=== PATIENT | male | born 1995 | race Two or more races ===

== ENCOUNTER 2018-04-07 17:30 | Emergency (ER) | payer BC ==
--- NOTE | 2018-04-07 18:59 | EDM.PDOC ---
ED HPI GENERAL MEDICAL PROBLEM - General Chief Complaint: Skin Complaint Stated Complaint: POSSIBLE STD Time Seen by Provider: 04/07/18 18:40 Source of Information: Reports: Patient History Limitations: Reports: No Limitations - History of Present Illness INITIAL COMMENTS - FREE TEXT/NARRATIVE: 23 year old male presents for evaluation and treatment of a possible STD. Patient reports about 3 weeks ago he had unprotected intercourse with his girlfriend. About 3 days later he noticed a bump to the dorsal base of his penis. Denies any pain associated with the area. He denies any fevers, chills, dysuria, penile discharge or other rashes. Reports he has never had any STDs but has also never been checked for any STDS. Reports his partner does not have any STDs she is enriquez of. - Related Data Allergies Allergy/AdvReac Type Severity Reaction Status Date / Time No Known Allergies Allergy Verified 04/07/18 17:44 Home Meds: Home Meds . [No Known Home Meds] 04/07/18 [History] Past Medical History HEENT History: Reports: Impaired Vision Social & Family History - Family History Family Medical History: Noncontributory - Tobacco Use Smoking Status *Q: Never Smoker - Caffeine Use Caffeine Use: Reports: Coffee - Recreational Drug Use Recreational Drug Use: No ED ROS GENERAL - Review of Systems Review Of Systems: See Below Constitutional: Denies: Fever, Chills : Denies: Discharge, Dysuria, Pain Skin: Reports: Lumps (dorsal base of penis) ED EXAM, SKIN/RASH Exam: See Below Exam Limited By: No Limitations General Appearance: Alert, WD/WN, No Apparent Distress Respiratory/Chest: No Respiratory Distress, Lungs Clear, Normal Breath Sounds Cardiovascular: Normal Peripheral Pulses, Regular Rate, Rhythm, No Murmur Neurological: Alert, Oriented, Normal Cognition Psychiatric: Normal Affect, Normal Mood Location, Skin: Genital Characteristics: Other (closed comodone to the base of the dorsal penis, no associated swelling, erythema, tenderness or blistering). No: Vesicular, Erythematous Associated features: No: Tenderness, Swelling Course - Vital Signs Last Recorded V/S: Last Vital Signs Temp 98.3 F 04/07/18 17:46 Pulse 70 04/07/18 17:46 Resp 14 04/07/18 17:46 BP 133/69 04/07/18 17:46 Pulse Ox 99 04/07/18 17:46 - Re-Assessments/Exams Free Text/Narrative Re-Assessment/Exam: 04/07/18 18:55 Appears to be a closed comodone. Recommended warm compress but he should avoid attempting to pop the area, as this could worsen the area or cause infection. No infection noted today. Discharge instructions as documented. Departure - Departure Time of Disposition: 18:55 Disposition: Home, Self-Care 01 Condition: Fair Clinical Impression: Closed comedone - Discharge Information *PRESCRIPTION DRUG MONITORING PROGRAM REVIEWED*: No *COPY OF PRESCRIPTION DRUG MONITORING REPORT IN PATIENT HELEN: No Referrals: PCP,Not In Area [Primary Care Provider] - Forms: ED Department Discharge Additional Instructions: May apply a warm compress to the area. The area should resolve on its own, it may take several weeks to months to resolve. Monitor for signs of infection such as increased redness, swelling or draining. Present to clinic or the ER should these develop. Pleaser return to the ER should symptoms change or worsen.
== END 2018-04-07 19:04 | disposition home or self-care (01) ==
LOC: JD.ED 17:30
DX: L70.0 Acne vulgaris (principal); Z20.2 Contact with and (suspected) exposure to infections with a predominantly sexual mode of transmission
CPT/HCPCS: 99283

== ENCOUNTER 2019-10-20 15:11 | Emergency (ER) | payer BC ==
--- NOTE | 2019-10-20 16:53 | EDM.PDOC ---
ED HPI GENERAL MEDICAL PROBLEM - General Chief Complaint: Respiratory Problem Stated Complaint: CHEST CONGESTION X 4 MONTHS Time Seen by Provider: 10/20/19 16:52 Source of Information: Reports: Patient, RN Notes Reviewed - History of Present Illness INITIAL COMMENTS - FREE TEXT/NARRATIVE: 24 yr old male with prod. cough for "4 months" not getting better. No fever, chills or difficulty breathin. Occasional mild nasal jed. No other unusual sx. - Related Data Allergies Allergy/AdvReac Type Severity Reaction Status Date / Time No Known Allergies Allergy Verified 10/20/19 16:09 Home Meds: Home Meds . [No Known Home Meds] 04/07/18 [History] Past Medical History HEENT History: Reports: Impaired Vision Cardiovascular History: Reports: None Respiratory History: Reports: None Gastrointestinal History: Reports: None Genitourinary History: Reports: None Musculoskeletal History: Reports: None Neurological History: Reports: None Psychiatric History: Reports: None Endocrine/Metabolic History: Reports: None Hematologic History: Reports: None Immunologic History: Reports: None Oncologic (Cancer) History: Reports: None Dermatologic History: Reports: None - Infectious Disease History Infectious Disease History: Reports: None Social & Family History - Family History Family Medical History: Noncontributory - Tobacco Use Smoking Status *Q: Never Smoker - Caffeine Use Caffeine Use: Reports: Soda - Recreational Drug Use Recreational Drug Use: No ED ROS GENERAL - Review of Systems Review Of Systems: See Below Constitutional: Denies: Fever, Chills, Diaphoresis HEENT: Reports: Rhinitis (mild). Denies: Throat Pain Respiratory: Reports: Cough, Sputum. Denies: Shortness of Breath, Wheezing, Pleuritic Chest Pain, Hemoptysis Cardiovascular: Denies: Chest Pain GI/Abdominal: Denies: Abdominal Pain, Diarrhea, Vomiting Musculoskeletal: Reports: No Symptoms Skin: Reports: No Symptoms Neurological: Reports: No Symptoms ED EXAM, GENERAL - Physical Exam Exam: See Below General Appearance: Alert, No Apparent Distress Nose: Normal Inspection Throat/Mouth: Normal Inspection Head: Atraumatic Neck: Supple Respiratory/Chest: No Respiratory Distress, Lungs Clear, Normal Breath Sounds. No: Rhonchi, Wheezing Cardiovascular: Regular Rate, Rhythm Extremities: Normal Inspection, Normal Range of Motion Neurological: Alert, Oriented, No Motor/Sensory Deficits Skin Exam: Warm, Dry, Normal Color, No Rash Course - Vital Signs Last Recorded V/S: Last Vital Signs Temp 98 F 10/20/19 16:06 Pulse 70 10/20/19 16:06 Resp 16 10/20/19 16:06 BP 144/93 H 10/20/19 16:06 Pulse Ox 99 10/20/19 16:06 - Re-Assessments/Exams Free Text/Narrative Re-Assessment/Exam: 10/23/19 14:15 CXR nl, discharge instr. as documented. Departure - Departure Time of Disposition: 18:04 Disposition: Home, Self-Care 01 Condition: Fair Clinical Impression: Bronchitis - Discharge Information Instructions: Acute Bronchitis, Adult Referrals: PCP,None [Primary Care Provider] - Forms: ED Department Discharge Additional Instructions: zithromax antibiotic, 2 tabs today and than 1 daily for the next 4 days. That will continue to work for you for about 10 -12 days total duration. Follow up clinic if not much better within 5 to 7 days as expected. Sepsis Event Note (ED) - Evaluation Sepsis Screening Result: No Definite Risk
--- NOTE | 2019-10-20 17:29 | CR ---
Chest: 2 views of the chest were obtained. Comparison: No prior chest x-ray is available. Heart size and mediastinum are normal. Lungs are clear with no acute parenchymal change. Minimal scoliosis is noted within the spine. Impression: 1. Nothing acute is seen on 2 view chest x-ray. Diagnostic code #2 This report was dictated in MDT
== END 2019-10-20 18:11 | disposition home or self-care (01) ==
LOC: JD.ED 15:11
DX: J40 Bronchitis, not specified as acute or chronic (principal)
CPT/HCPCS: 71046; 71046-26; 99283; 99283-25

== ENCOUNTER 2019-12-12 15:01 | Emergency (ER) | payer SELFPAY ==
[2019-12-12] MEDS ORDERED: methylPREDNISolone Sodium Succinate 125 MG/2 ML SDV IVPUSH ONE (15:56)
[2019-12-12] MEDS ORDERED: Albuterol 0.083% 2.5 MG/3 ML Neb Soln NEB ONE (15:56)
[2019-12-12] MEDS ORDERED: Sodium Chloride 0.9% 10 ML Syringe FLUSH PRN (15:56)
--- NOTE | 2019-12-12 16:27 | EDM.PDOC ---
ED HPI GENERAL MEDICAL PROBLEM - General Chief Complaint: Respiratory Problem Stated Complaint: SOB Time Seen by Provider: 12/12/19 15:50 Source of Information: Reports: Patient, RN Notes Reviewed History Limitations: Reports: No Limitations - History of Present Illness INITIAL COMMENTS - FREE TEXT/NARRATIVE: Patient is a 24-year-old male who presents to the ED for the evaluation of his shortness of breath and wheezing. Patient states he is here because he thinks he is having a "asthma attack". He has had no formal diagnosis of asthma, but he states he was playing basketball earlier today, and he began to feel acutely short of breath and noticed that he was wheezing, and was very hard to catch his breath. Patient notes that he is a fairly active person, and he has not had issues like this before ever. He did state that he went home, and went into the shower room and turned it up as high as ago, was breathing in the steam, and he did end up coughing up some yellow mucus. Patient notes he was seen roughly a month ago, and was told he had bronchitis and sent home with azithromycin, he states this helped for a couple days, but nothing really seem to make it better. He has not had any fevers or chills, any nausea/vomiting/diarrhea. - Related Data Allergies Allergy/AdvReac Type Severity Reaction Status Date / Time No Known Allergies Allergy Verified 12/12/19 15:18 Home Meds: Home Meds predniSONE 20 mg PO ASDIRECTED #15 tab 12/12/19 [Rx] Past Medical History HEENT History: Reports: Impaired Vision Cardiovascular History: Reports: None Respiratory History: Reports: Bronchitis, Recurrent Gastrointestinal History: Reports: None Genitourinary History: Reports: None Musculoskeletal History: Reports: None Neurological History: Reports: None Psychiatric History: Reports: None Endocrine/Metabolic History: Reports: None Hematologic History: Reports: None Immunologic History: Reports: None Oncologic (Cancer) History: Reports: None Dermatologic History: Reports: None - Infectious Disease History Infectious Disease History: Reports: None Social & Family History - Family History Family Medical History: Noncontributory - Tobacco Use Smoking Status *Q: Never Smoker - Caffeine Use Caffeine Use: Reports: None - Recreational Drug Use Recreational Drug Use: No ED ROS GENERAL - Review of Systems Review Of Systems: Comprehensive ROS is negative, except as noted in HPI. ED EXAM, GENERAL - Physical Exam Exam: See Below Exam Limited By: No Limitations General Appearance: Alert, WD/WN, No Apparent Distress Respiratory/Chest: Chest Non-Tender, Respiratory Distress (mild,), Wheezing (diffuse bilaterally) Cardiovascular: Normal Peripheral Pulses, Regular Rate, Rhythm, No Murmur Extremities: Normal Inspection, Normal Capillary Refill Neurological: Alert, Oriented, Normal Cognition, No Motor/Sensory Deficits Psychiatric: Normal Affect, Normal Mood Skin Exam: Warm, Dry, Intact, Normal Color, No Rash Course - Vital Signs Last Recorded V/S: Last Vital Signs Temp 98.4 F 12/12/19 15:15 Pulse 99 12/12/19 15:15 Resp 25 H 12/12/19 15:15 BP 158/131 H 12/12/19 15:15 Pulse Ox 98 12/12/19 16:08 - Orders/Labs/Meds Orders: Active Orders 24 hr Category Date Time Status Peripheral IV Care [RC] . DIRECTED Care 12/12/19 15:56 Ordered RT Aerosol Therapy [RC] ASDIRECTED Care 12/12/19 15:56 Ordered RT Post Treatment Assessment [RC] Click to Edit Care 12/12/19 16:36 Ordered RT Pre-Treatment Assessment [RC] Click to Edit Care 12/12/19 16:36 Ordered Sodium Chloride 0.9% [Saline Flush] Med 12/12/19 15:56 Ordered 10 ml FLUSH ASDIRECTED PRN Peripheral IV Insertion Adult [OM.PC] Routine Oth 12/12/19 15:56 Ordered Medication Orders Sodium Chloride (Saline Flush) 10 ml FLUSH ASDIRECTED PRN PRN Reason: Keep Vein Open Last Admin: 12/12/19 16:15 Dose: 10 ml Documented by: ANABELA Meds: Medications Generic Name Dose Route Start Last Admin Trade Name Freq PRN Reason Stop Dose Admin Sodium Chloride 10 ml 12/12/19 15:56 12/12/19 16:15 Saline Flush FLUSH 10 ml ASDIRECTED PRN Administration Keep Vein Open Discontinued Medications Generic Name Dose Route Start Last Admin Trade Name Freq PRN Reason Stop Dose Admin Albuterol 2.5 mg 12/12/19 15:56 12/12/19 16:08 Proventil Neb Soln NEB 12/12/19 15:57 2.5 mg ONETIME ONE Administration Albuterol 0 gm 12/12/19 16:35 Proventil Hfa INH 12/12/19 16:36 ONETIME ONE Methylprednisolone Sodium Succinate 125 mg 12/12/19 15:56 12/12/19 16:15 Solu-Medrol IVPUSH 12/12/19 15:57 125 mg ONETIME ONE Administration - Re-Assessments/Exams Free Text/Narrative Re-Assessment/Exam: 12/12/19 16:38 Patient presents to the ED for the evaluation of his shortness of breath and wheezing. He was given 1 albuterol nebulizer, and a dose of 125 mg of Solu- Medrol IV for management, patient was reassessed after these meds were given and states that he is feeling much better, I will provide him with an inhaler, with instructions on how to use this and a burst of prednisone outpatient whaley. Patient will follow-up with a primary care provider of choice, sometime later this week to make sure symptoms are getting better as expected. Departure - Departure Time of Disposition: 16:39 Disposition: Home, Self-Care 01 Condition: Good Clinical Impression: Reactive airway disease Qualifiers: Asthma severity: mild Asthma persistence: unspecified Qualified Code(s): J45.909 - Unspecified asthma, uncomplicated - Discharge Information *PRESCRIPTION DRUG MONITORING PROGRAM REVIEWED*: No *COPY OF PRESCRIPTION DRUG MONITORING REPORT IN PATIENT HELEN: No Prescriptions: predniSONE 20 mg PO ASDIRECTED #15 tab Instructions: How to Use a Metered Dose Inhaler Referrals: PCP,None [Primary Care Provider] - Forms: ED Department Discharge, ED Return to Work/School Form Additional Instructions: You were evaluated in the ER today for your acute shortness of breath and wheezing. You were given an albuterol nebulizer, along with IV steroids, this seemed to help relieve some of your symptoms. You will be given an albuterol inhaler to use as needed, please use 2 puffs every 4 hours as needed for further shortness of breath. You were given a prescription for prednisone, please use this as directed. You can pick this up at the pharmacy tomorrow. Recommend you call our clinic at [phone] and follow-up with a primary care provider or family medicine provider of choice. Any family practice provider would be able to provide you with the services. Please do not hesitate to return to the ER if symptoms change or worsen. Sepsis Event Note (ED) - Evaluation Sepsis Screening Result: Possible Sepsis Risk - Focused Exam Vital Signs: Vital Signs Temp Pulse Resp BP Pulse Ox Pulse Ox 12/12/19 16:08 98 12/12/19 15:15 98.4 F 99 25 H 158/131 H 92 L - My Orders Last 24 Hours: My Active Orders 12/12/19 15:56 Peripheral IV Care [RC] . DIRECTED RT Aerosol Therapy [RC] ASDIRECTED Sodium Chloride 0.9% [Saline Flush] 10 ml FLUSH ASDIRECTED PRN Peripheral IV Insertion Adult [OM.PC] Routine 12/12/19 16:36 RT Post Treatment Assessment [RC] Click to Edit RT Pre-Treatment Assessment [RC] Click to Edit - Assessment/Plan Last 24 Hours: My Active Orders 12/12/19 15:56 Peripheral IV Care [RC] . DIRECTED RT Aerosol Therapy [RC] ASDIRECTED Sodium Chloride 0.9% [Saline Flush] 10 ml FLUSH ASDIRECTED PRN Peripheral IV Insertion Adult [OM.PC] Routine 12/12/19 16:36 RT Post Treatment Assessment [RC] Click to Edit RT Pre-Treatment Assessment [RC] Click to Edit
[2019-12-12] MEDS ORDERED: Albuterol 6.7 GM Inhaler INH ONE (16:35)
== END 2019-12-12 17:03 | disposition home or self-care (01) ==
LOC: JD.ED 15:01
DX: J45.909 Unspecified asthma, uncomplicated (principal)
CPT/HCPCS: 94640; 96374; 99284; A9270; J2930; 99283